=== PATIENT | male | born 1950 | race Caucasian/White ===

== ENCOUNTER 2017-06-18 07:58 | Day surgery (SDC) | payer BC, MEDICARE ==
[~2017-06-18 07:58] MED LIST: Acetaminophen TAB* 325 MG PO PRN; Buffered Lidocaine 0.9% SYRIN* 5 ML/SYR SYRINGE INTRADERM ONE
[2017-06-18] MEDS ORDERED: Midazolam* 1 MG/ML 2 ML VIAL (2 MG) ONE ×2 (08:50→09:19)
[2017-06-18] MEDS ORDERED: fentaNYL* 50 MCG/ML 2 ML VIAL (100 MCG VIAL) ONE (08:50)
[2017-06-18 09:49] VITALS: BP 108/69
[2017-06-18] MEDS ORDERED: Phenylephrine 2.5% OPTH.SOL* 2 ML BTL ONE (14:23)
[2017-06-18] MEDS ORDERED: Cyclopentolate 1% OPTH.SOL* 2 ML BTL ONE (14:23)
[2017-06-18] MEDS ORDERED: Lidocaine 1% MPF* 2 ML VIAL ONE (14:23)
[2017-06-18] MEDS ORDERED: Tropicamide 1% OPTH.SOL* BTL ONE (14:23)
[2017-06-18] MEDS ORDERED: Tetracaine 0.5% OPTH.SOL 4 ML* 1 DROP BTL ONE (14:23)
[2017-06-18] MEDS ORDERED: Buffered Lidocaine 0.9% SYRIN* 5 ML/SYR SYRINGE ONE (14:23)
[2017-06-18] MEDS ORDERED: Flurbiprofen 0.03% OPTH.SOL* 2.5 ML BTL ONE (14:23)
[2017-06-18] MEDS ORDERED: Neomycin/Polymy/Dex OPHTH.OIN* 3.5 GM ONE (14:23)
[2017-06-18] MEDS ORDERED: Phenylephr/Ketorolac 1%/0.3% OPH DROP BTL ONE (14:42)
--- NOTE | 2017-06-18 17:44 | OP ---
DATE OF OPERATION: 06/18/17 - [facility] DATE OF : 50 SURGEON: Jagdeep Suh MD PERSONAL CAREGIVER: None. ANESTHESIA: Topical with intravenous sedation. PRE-OP DIAGNOSIS: Cataract, left eye, with astigmatism. POST-OP DIAGNOSIS: Cataract, left eye, with astigmatism. OPERATIVE PROCEDURE: Phacoemulsification and cataract extraction with posterior chamber toric intraocular lens implant, left eye. COMPLICATIONS: None. ESTIMATED BLOOD LOSS: None. DESCRIPTION OF PROCEDURE: The patient was seen preoperatively in the holding area, where he was placed in an upright position. A desiree was made at the 6 o' clock position near the limbus on the conjunctiva in the left eye. The patient was subsequently brought to the operating room and given a small amount of intravenous sedation. A drop of tetracaine was placed in his left eye. The patient was prepped and draped in the usual sterile fashion for ophthalmic surgery and attention was directed to the left eye where a speculum was placed. A paracentesis was created at the 5 o'clock position and 0.1 cc of 1% preservative-free lidocaine was injected into the anterior chamber followed by DisCoVisc. The eye was digitally stabilized while a 2.75-mm keratome was used to create a triplanar clear corneal incision at the 3 o'clock position. A continuous curvilinear capsulorrhexis was created with a cystotome and Utrata forceps. BSS on a cannula was used to hydrodissect the lens from the capsule. Phacoemulsification was performed in a [id number]-[id number] technique to create four fragments, which were removed. Residual cortical material was removed with irrigation and aspiration. Healon was used to inflate the capsular bag. A Archer marker and marking pen was used to desiree the 7-degree axis on the limbus. An [id number] 19.5 diopter lens was folded and inserted into the capsular bag. It was aligned to the approximate axis using the Sinskey hook. Lens was stabilized in this position with Sinskey hook for the paracentesis while irrigation and aspiration was performed to remove viscoelastic from the eye. The Sinskey hook was removed. BSS on a cannula was used to hydrate the corneal stroma and seal the wound. At the end of the case, the pupil was round. The lens was centered, stable, and axially aligned. The eye pressure was normal and the wound was watertight. The speculum was removed and topical Maxitrol ointment was placed on the surface of the eye. The eye was closed, patched, and shielded, and the patient was sent to recovery room in stable condition with postoperative instructions and followup appointment given. [id number]/CPS #: [id number] MTDD
== END 2017-06-18 09:50 | disposition home or self-care (01) ==
LOC: OREAST 07:58
PROVIDERS: ATTEND Ophthalmology
DX: H25.12 Age-related nuclear cataract, left eye (principal); H52.202 Unspecified astigmatism, left eye; H25.22 Age-related cataract, morgagnian type, left eye; E78.4 Other hyperlipidemia; F41.1 Generalized anxiety disorder; F34.1 Dysthymic disorder; Z88.0 Allergy status to penicillin; J45.909 Unspecified asthma, uncomplicated; F17.210 Nicotine dependence, cigarettes, uncomplicated
CPT/HCPCS: A9270-GY; C9447; J2250; J3010; V2787

== ENCOUNTER 2019-08-27 12:53 | Emergency (ER) | payer BC, MEDICARE ==
--- OUTSIDE RECORDS SUMMARY | 2019-08-27 13:02 | XMS REPORT | Continuity of Care Document ---
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 Problems Description No Information Available Social History Type Date Description Comments Sex Unknown ETOH Use Occasionally consumes alcohol socially Tobacco Use Start: Unknown Light tobacco smoker (10 or fewer cigarettes/day) Smoking Status Reviewed: 08/07/19 Light tobacco smoker (10 or fewer cigarettes/day) Allergies, Adverse Reactions, Alerts Active Allergies Reaction Severity Comments Date Penicillins 03/01/2017 Seasonal 03/01/2017 Medications Active Medications SIG Qnty Indications Ordering Provider Date Atorvastatin Calcium Unknown 10mg Tablets Lexapro 1 by mouth every Unknown 10mg Tablets day Singulair 1 by mouth every Unknown 10mg Tablets day Ibuprofen Unknown 200mg Capsules Doxylamine Succinate Unknown Powder Flonase Sensimist Unknown 27.5mcg/[place] Suspension Immunizations Description No Information Available Vital Signs Date Vital Result Comment 08/07/2019 11:06am Intraocular Pressure Right Eye 18 mmHg Intraocular Pressure Left Eye 19 mmHg 11/07/2017 10:23am Intraocular Pressure Right Eye 19 mmHg Intraocular Pressure Left Eye 17 mmHg Results Description No Information Available Procedures Date Code Description Status 08/07/2019 45429 Eye Exam Est Comprehensive Completed Medical Devices Description No Information Available Encounters Description No Information Available Assessments Date Code Description Provider 08/07/2019 Z96.1 Presence of intraocular lens Jaylon Alvarez, OD 08/07/2019 H40.013 Open angle with borderline findings, low risk, Jaylon Alvarez, OD bilateral 08/07/2019 H25.11 Age-related nuclear cataract, right eye Jaylon Workmanon, OD 08/07/2019 H52.4 Presbyopia Jaylon Antonio, OD Plan of Treatment 08/07/2019 - Jaylon Alvarez, ODZ96.1 Presence of intraocular lensH40.013 Open angle with borderline findings, low risk, [id number] Age-related nuclear cataract, right eyeH52.4 PresbyopiaFollow up:yearly full, sooner PRN Functional Status Description No Information Available Mental Status Description No Information Available Referrals Description No Information Available
[2019-08-27 13:09] VITALS: BP 145/86
[2019-08-27] MEDS ORDERED: Tetan/Diph/Pertus SYR(Tdap)* 0.5 ML SYR(BOOSTRIX) use SYR contains LATEX IM ONE (13:11)
--- NOTE | 2019-08-27 13:46 | UC ---
Skin Complaint HPI - HPI Summary HPI Summary: 69 year old male, denies DM II/ difficulty with healing, present after cutting middle finger with pruning chelsie yesterday at 5PM. Bleeding controlled, presents b/c not up to date on tetanus. Full sensation/ motion, no other complaints. no redness, drainage noted. - History of Current Complaint Chief Complaint: UCLaceration Time Seen by Provider: 08/27/19 13:00 Stated Complaint: FINGER LACERATION Hx Obtained From: Patient Onset/Duration: Sudden Onset, Lasting Hours Skin Exposure Onset/Duration: Hours Ago Current Severity: None Pain Intensity: 0 Pain Scale Used: 0-10 Numeric - Allergy/Home Medications Allergies/Adverse Reactions: Allergies Allergy/AdvReac Type Severity Reaction Status Date / Time amoxicillin Allergy Intermediate Hives Verified 08/27/19 13:11 PMH/Surg Hx/FS Hx/Imm Hx Previously Healthy: Yes - Surgical History Surgical History: Yes Surgery Procedure, Year, and Place: TONSILLECTOMY 1970. WISDOM TEETH REMOVED - Family History Known Family History: Positive: Non-Contributory - Social History Alcohol Use: Occasionally Substance Use Type: Marijuana Substance Use Comment - Amount & Last Used: EXTREMELY RARE Smoking Status (MU): Light Every Day Tobacco Smoker Amount Used/How Often: 1/2 PPD When Did the Patient Quit Smoking/Using Tobacco: QUITS OFF AND ON, CURRENTLY SMOKING Review of Systems All Other Systems Reviewed And Are Negative: Yes Skin: Positive: Other - laceration Musculoskeletal: Negative: Arthralgia, Decreased ROM, Edema, Myalgia Psychological: Positive: Negative Is Patient Immunocompromised?: No Physical Exam Triage Information Reviewed: Yes Appearance: Well-Appearing, No Pain Distress, Well-Nourished Vital Signs: Initial Vital Signs Temp 98.8 F 08/27/19 13:04 Pulse 58 08/27/19 13:04 Resp 18 08/27/19 13:04 BP 145/86 08/27/19 13:04 Pulse Ox 98 08/27/19 13:04 Vital Signs Reviewed: Yes Eyes: Positive: Conjunctiva Clear ENT: Positive: Hearing grossly normal Musculoskeletal: Positive: Strength Intact, ROM Intact, No Edema Neurological: Positive: Alert, Other: - SITLT distal to R wrist Psychological: Positive: Normal Response To Family Skin: Positive: Other - small laceration to tip of middle finger, right hand, no bleeding, no erythema, non-tender, full ROM against resistence of DIP, PIP, MCP R fingers. Course/Dx - Course Course Of Treatment: laceration, R middle finger, > 12 hours unable to close - Keep area clean and dry - Do not submerge wound for next 4-5 days to prevent infection - Return with redness, drainage, increased pain - Tdap given - Diagnoses Provider Diagnosis: Laceration of finger, right Discharge ED - Sign-Out/Discharge Documenting (check all that apply): Patient Departure All imaging exams completed and their final reports reviewed: No Studies - Discharge Plan Condition: Good Disposition: HOME Patient Education Materials: Tdap and Td Vaccines for Adults (ED) Referrals: Norman Moreno MD [Primary Care Provider] - Additional Instructions: - Keep area clean and dry - Do not submerge wound for next 4-5 days to prevent infection - Return with redness, drainage, increased pain - Billing Disposition and Condition Condition: GOOD Disposition: Home - Attestation Statements Provider Attestation: I was available for consult. This patient was seen by the KATHERINE. The patient was not presented to, seen by, or examined by me. -Rosie now
== END 2019-08-27 13:44 | disposition home or self-care (01) ==
LOC: UCEAST 12:53
DX: S61.212A Laceration without foreign body of right middle finger without damage to nail, initial encounter (principal); F17.210 Nicotine dependence, cigarettes, uncomplicated; Z23 Encounter for immunization; Z88.0 Allergy status to penicillin; W27.8XXA Contact with other nonpowered hand tool, initial encounter; Y92.9 Unspecified place or not applicable
CPT/HCPCS: 90471; 90715; 99212; G0463